=== PATIENT | female | born 1950 ===

== ENCOUNTER 2025-06-13 06:11 | Day surgery (SDC) | payer MEDICARE, BC, SELFPAY ==
--- NOTE | 2025-05-25 15:55 | CM ---
CM reviewed medical records. CM left message for orthopedic IA.
--- NOTE | 2025-05-29 15:11 | CM ---
Addendum entered by Alison Celestin RN 05/30/25 10:20:
Demographics: confirmed
Living situation: lives in a [place] community with
Support Person Post Operatively:
History of
VN: No
SNF: No
Outpatient: [facility]
Has patient purchased required equipment: yes, walker, cane
PCP: active
Pharmacy: [facility]
Post Operative Discharge Plan: [facility] with [facility] and then transition to outpatient PT.
Original Note:
CM left message for patient to discuss orthopedic IA.
[2025-05-30 14:07] VITALS: BMI 38.5
[2025-05-30 14:48] LABS: Hematocrit 38.8 % (37.0-47.0); Hemoglobin 13.3 g/dL (12.0-16.0); Mean Corp Hgb Conc. 34.3 g/dL (33.0-37.0); Mean Corpuscular Volume 92.6 fL (81.0-99.0); Platelet Count 333 10^3/uL (130-400); Red Cell Dist. Width 13.3 % (11.5-14.5)
[2025-05-30 15:14] VITALS: BMI 38.5
[2025-05-30 15:57] LABS: ALT (SGPT) 21 U/L (0-35); AST (SGOT) 19 U/L (14-36); Albumin 4.2 g/dl (3.5-5.0); Alkaline Phosphatase 93 U/L (38-126); Blood Urea Nitrogen 20 mg/dl (7-17); Calcium 9.3 mg/dl (8.4-10.2); Carbon Dioxide 24 mmol/L (22-30); Chloride 108 mmol/L (98-107); Estimated Creatinine Clearance 63 ml/min; Glucose 85 mg/dl (70-99); Potassium 4.4 mmol/L (3.5-5.1); Sodium 139 mmol/L (135-145); Total Protein 6.7 g/dl (6.3-8.2); eGFR 59.86
[2025-05-31 08:28] LABS: Glycohemoglobin (HgbA1c) 5.8 % (4.0-5.6)
--- NOTE | 2025-05-31 09:21 | VNURNOTE ---
Chart reviewed. Pt scheduled for same day L TKA with Dr Medina 06/13. [facility] Liaison called pt x 2 , no answer. Left message requesting call back.
[facility] referral placed in [facility].
[2025-06-13] VITALS (14 sets, daily range): BP systolic 104–175; BP diastolic 55–95; BMI 38.5
[2025-06-13] MEDS: CELEBREX 200 MG PO (08:33)
[2025-06-13] MEDS: TYLENOL 650 MG PO ×2 (08:33→18:32)
[2025-06-13] MEDS: NORMOSOL-R/PLASMALYTE-A 1000 IV ×2 (08:35→16:50)
[2025-06-13] MEDS: TUMS CHEWABLE TABLET 200 MG PO (11:26)
[2025-06-13] MEDS: NSS (PRESERVATIVE FREE) 8 ML IV (11:26)
[2025-06-13] MEDS: NSS (PRESERVATIVE FREE) 10 ML IV (11:26)
[2025-06-13] MEDS: PROTONIX IV 40 MG IV (11:26)
[2025-06-13] MEDS: PEPCID 20 MG IV (11:26)
[2025-06-13] MEDS: ANCEF 5 IV ×2 (13:46→17:37)
[2025-06-13] MEDS: ZOFRAN 4 MG IV (13:49)
[2025-06-13] MEDS: MYLICON 80 MG PO (15:05)
--- NOTE | 2025-06-13 15:12 | W.PN.UPDATE ---
Update Note
Progress Note Update
L knee OA s/p L TKA w/ Dr Medina 06/13/25
- Given sleepiness, gas pain, and nausea post-procedure will admit for further monitoring
DVT prophylaxis - ASA, b/l venous foot pumps
HTN - + parameters - monitor BP
PACs, asymptomatic
PAF, status post ablation 05/2022
RBBB
Loop recorder in situ
- Monitor on tele
- Continue BB
Remote superficial phlebitis of RLE secondary to oral contraceptives - ASA for DVT prevention
- Promote frequent and early ambulation as tolerated
SURESH, noncompliant with device - monitor O2
- IS
- Add supplemental O2 HS
GERD - continue PPI therapy
Obesity, BMI 38.5 - would benefit from prophylactic abx upon d/c
HLD
Colon polyps
Diverticulosis
Irritable bowel syndrome
Vertigo
L4-L5 herniated discs, treated conservatively
Depression
Panic disorder
Claustrophobia
Hearing impairment bilaterally
Mild leukocytosis, asymptomatic
Prediabetes, A1c 5.8
--- NOTE | 2025-06-13 16:23 | TRANSFER ---
admission orders received. report given to 2S RN irene. patient transported to room 2113 with all belongings in stable condition.
[2025-06-13] MEDS: TYLENOL PO (16:54)
[2025-06-13] MEDS: COMPAZINE 5 MG IV (16:56)
--- NOTE | 2025-06-13 18:04 | PTCARENOTE ---
1615 Pt arrived from [facility] in stretcher. Pt pulled over X3. VSS. Pt nauseous. medicated per MAR. Neurovascular checks with in normal limits. L knee primaseal C/D/I. Oriented to room and call wall.
[2025-06-13] MEDS: ASPIRIN 325 MG PO (18:32)
[2025-06-13] MEDS: PROTONIX 40 MG PO (18:37)
[2025-06-13] MEDS: SENOKOT 17.2 MG PO (20:21)
[2025-06-13] MEDS: FLORASTOR 250 MG PO (20:21)
[2025-06-13] MEDS: COREG 6.25 MG PO (20:21)
[2025-06-13] MEDS: DECADRON 4 MG PO (20:21)
[2025-06-13] MEDS: COLACE 100 MG PO (20:21)
[2025-06-13] MEDS: BACTROBAN 2% OINTMENT 1 APPLIC NASAL (20:21)
[2025-06-13] MEDS: NEURONTIN 300 MG PO (21:30)
[2025-06-13] MEDS: REMERON 30 MG PO (21:30)
[2025-06-13] MEDS: REFRESH EYE DROPS (PF) 1 DROPS OPHTH (21:39)
[2025-06-14] MEDS: TYLENOL 650 MG PO ×4 (00:10→12:43)
[2025-06-14] MEDS: ANCEF 5 IV (01:28)
[2025-06-14 04:20] VITALS: BP 133/54
[2025-06-14 07:20] VITALS: BP 129/66
[2025-06-14] MEDS: SENOKOT 17.2 MG PO (08:56)
[2025-06-14] MEDS: PROTONIX 40 MG PO (08:56)
[2025-06-14] MEDS: DECADRON 4 MG PO (08:56)
[2025-06-14] MEDS: CELEBREX 200 MG PO (08:56)
[2025-06-14] MEDS: COREG 6.25 MG PO (08:57)
[2025-06-14] MEDS: COLACE 100 MG PO (08:57)
[2025-06-14] MEDS: FLORASTOR 250 MG PO (08:57)
[2025-06-14] MEDS: BACTROBAN 2% OINTMENT 1 APPLIC NASAL (08:57)
[2025-06-14] MEDS: ASPIRIN 325 MG PO (08:57)
--- NOTE | 2025-06-14 08:59 | CM ---
CM met with patient in room. Plan for outpatient PT. CM called [facility] for a 06/15 appointment at 11 am. Patient plans to continue with Maik ARNOLD. IMM given and explained.
PLAN: Home with outpatient PT.
[2025-06-14] MEDS: ROXICODONE 5 MG PO ×2 (09:06→12:44)
--- NOTE | 2025-06-14 09:09 | W.PN.ORTHO ---
Today's Communication / Plan
-
Await PT and OT recs.
Monitor pain.
D/c later today if remaining clinically stable.
Assessment
.
Distal Motor Intact: Yes
Dressing:
Clean, dry and intact.
Assessment:
L knee OA s/p L TKA w/ Dr Medina 06/13/25
- Given sleepiness, gas pain, and nausea post-procedure did admit for further monitoring
DVT prophylaxis - ASA, b/l venous foot pumps
HTN - + parameters - BPs overall stable
PACs, asymptomatic
PAF, status post ablation 05/2022
RBBB
Loop recorder in situ
- Maintaining NSR on tele w/ continuation of BB
Remote superficial phlebitis of RLE secondary to oral contraceptives - ASA for DVT prevention
- Promote frequent and early ambulation as tolerated
SURESH, noncompliant with device - O2 stable on RA
- IS
- Added supplemental O2 HS
GERD - continue PPI therapy
Obesity, BMI 38.5 - would benefit from prophylactic abx upon d/c
HLD
Colon polyps
Diverticulosis
Irritable bowel syndrome
Vertigo
L4-L5 herniated discs, treated conservatively
Depression
Panic disorder
Claustrophobia
Hearing impairment bilaterally
Mild leukocytosis, asymptomatic
Prediabetes, A1c 5.8
Plan
.
Surgery / Date: L TKA w/ Dr Medina 06/13/25
DVT Prophylaxis: Aspirin
Activity:
Out of bed.
PT/OT
Discharge Plan: Home w/ Outpatient PT (pt rescheduled [facility] appt from Wednesday to Friday 06/15)
Subjective
.
.:
Patient resting comfortably in her chair.
L knee pain minimal currently; however, hasn't been up much since not feeling well yesterday. Will monitor.
Nausea yesterday has improved today.
Eager for potential d/c today.
Vital Signs and Labs
.
Vital Signs and Labs:
Lab Results
05/30/25 13:28
05/30/25 13:28
Temp Pulse Resp BP Pulse Ox
98.2 F 86 16 129/66 93
06/14/25 07:20 06/14/25 07:20 06/14/25 07:20 06/14/25 07:20 06/14/25 07:20
Non-invasive Hgb result: 15.8
Physical Exam
-
HEENT: No pallor, cyanosis, or jaundice. Throat clear.
NECK: Supple. No JVD.
RESPIRATORY: Lungs clear to auscultation.
CVS: S1, S2 normal. RRR.
ABDOMEN: Soft, non-tender. No distension.
EXTREMITIES: Strength equal, no calf pain with palpation/dorsiflexion. Calves soft.
CONSOLIDATOR: AOx3. No focal deficits. 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
--- NOTE | 2025-06-14 09:17 | W.DS.TRANS ---
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
-
Discharge Instructions:
Discharge Diagnosis/Procedures L knee OA s/p L TKA w/ Dr Medina 06/13/25
Diet Other diet
Additional Diets Diabetic carb controlled x1 week for wound
healing/infection prevention.
Adequate hydration, minimize opioids, and wear
TEDs stockings to prevent low blood pressure/
dizziness.
Activity As tolerated,With Walker
Driving Restrictions Not until seen by your Dr
Bathing Restrictions OK to Shower
Other Services PT,VN
Wound Care Dressing to be removed 1 week post-surgery.
Instructions:
Stand-Alone Forms: Total Hip/Knee Replacement D/C
Changes to Home Medications: Yes
Discharge Medications:
DC Medications w/original date entered in [facility]
carvedilol 6.25 mg tablet 6.25 mg PO BID 05/28/25
estradiol 0.01% (0.1 mg/gram) vaginal cream 1 g vaginal MOTH 05/28/25
fluticasone propionate 50 mcg/actuation nasal spray,suspension 2 spray intranasal HS 05/28/25
mirtazapine 30 mg tablet 30 mg PO HS 05/28/25
multivitamin 1 tab PO DAILY 05/28/25
omeprazole 20 mg capsule,delayed release 20 mg PO DAILY 05/28/25
cefadroxil 500 mg capsule 500 mg PO BID #14 caps 05/30/25
celecoxib 200 mg capsule (Celebrex) 200 mg PO DAILY #14 caps 05/30/25
dexamethasone 4 mg tablet 4 mg PO BID Anti-inflammatory #7 tabs 05/30/25
gabapentin 300 mg capsule 300 mg PO HS PRN neuropathic pain/sleep #10 caps 05/30/25
mupirocin 2 % topical ointment 1 applic intranasal BID #1 tube 05/30/25
ondansetron HCl 4 mg tablet 4 mg PO Q6H PRN nausea and vomiting #30 tabs 05/30/25
oxycodone 5 mg tablet 5 - 10 mg (1 - 2 x 5 mg) PO Q6H PRN moderate-severe pain #30 tabs 05/30/25
melatonin 5 mg tablet 5 mg PO HS PRN sleep 06/12/25
Saccharomyces boulardii 250 mg capsule (Florastor) 250 mg PO BID #14 caps 06/13/25
Vitamin C 1,000 mg PO DAILY 06/13/25
acetaminophen 500 mg tablet 1,000 mg (2 x 500 mg) PO Q6H pain #0 tabs 06/13/25
amoxicillin 2,000 mg PO ONCE 06/13/25
aspirin 325 mg tablet 325 mg PO DAILY #30 tabs 06/13/25
dicyclomine 10 mg capsule 10 mg PO BID PRN GI upset #0 caps 06/13/25
docusate sodium 100 mg capsule (Colace) 100 mg PO BID #30 caps 06/13/25
polyethylene glycol 3350 17 gram oral powder packet (Miralax) 17 g PO DAILY PRN Constipation #14 ea 06/13/25
sennosides 8.6 mg tablet (senna) 17.2 mg (2 x 8.6 mg) PO BID #30 tabs 06/13/25
Home Medication Changes
cefadroxil 500 mg capsule 500 mg PO BID #14 caps 05/30/25
celecoxib 200 mg capsule (Celebrex) 200 mg PO DAILY #14 caps 05/30/25
dexamethasone 4 mg tablet 4 mg PO BID Anti-inflammatory #7 tabs 05/30/25
gabapentin 300 mg capsule 300 mg PO HS PRN neuropathic pain/sleep #10 caps 05/30/25
ondansetron HCl 4 mg tablet 4 mg PO Q6H PRN nausea and vomiting #30 tabs 05/30/25
oxycodone 5 mg tablet 5 - 10 mg (1 - 2 x 5 mg) PO Q6H PRN moderate-severe pain #30 tabs 05/30/25
Saccharomyces boulardii 250 mg capsule (Florastor) 250 mg PO BID #14 caps 06/13/25
acetaminophen 500 mg tablet 1,000 mg (2 x 500 mg) PO Q6H pain #0 tabs 06/13/25
aspirin 325 mg tablet 325 mg PO DAILY #30 tabs 06/13/25
docusate sodium 100 mg capsule (Colace) 100 mg PO BID #30 caps 06/13/25
polyethylene glycol 3350 17 gram oral powder packet (Miralax) 17 g PO DAILY PRN Constipation #14 ea 06/13/25
sennosides 8.6 mg tablet (senna) 17.2 mg (2 x 8.6 mg) PO BID #30 tabs 06/13/25
Pending Results: No
[2025-06-14] MEDS: REFRESH EYE DROPS (PF) 1 DROPS OPHTH (10:24)
[2025-06-14 10:30] VITALS: BP 144/68; PULSE 86; O2SAT 96
[2025-06-14 11:11] VITALS: BP 137/86
[2025-06-14 11:43] VITALS: BP 134/86; PULSE 81; O2SAT 96
== END 2025-06-14 14:16 | disposition home health service (06) ==
LOC: SDS 06:11
PROVIDERS: ATTENDING PHYSICIAN Orthopaedic Surgery; FAMILY PHYSICIAN Family Medicine; REFERRING PHYSICIAN Internal Medicine Cardiovascular Disease
DX: M17.12 Unilateral primary osteoarthritis, left knee (principal)
CPT/HCPCS: 27447; 36415; 73560; 80053; 83036; 85027; 87070; 93005; 97110; 97116; 97162; 97167; 97530; C1713; C1776